=== PATIENT | female | born 1980 | race Caucasian/White ===

== ENCOUNTER → 2019-07-23 | Outpatient (CLI) | payer OTHER ==
[~2019-07-23] MED LIST: CATHETER FLUSH 10 ML SYR IV PRN; HOLD METFORMIN - RECEIVED CONTRAST 20 ML VIAL IV SCH; IOHEXOL 350 MG/ML 100 ML (OMNIPAQUE 350) VIAL IV ONE; NS 100 ML (IVPB) BAG IV ONE
[2019-07-23 14:50] LABS: BUN/CREATININE RATIO 20; CREATININE SERUM 0.71 MG/DL (0.60-1.30); GFR ESTIMATED > 60
--- NOTE | 2019-07-23 15:56 | Diagnostic Imaging Report ---
PROCEDURE: CT abdomen and pelvis without contrast. TECHNIQUE: Multiple contiguous axial images were obtained through the abdomen and pelvis without the use of intravenous contrast. Auto Exposure Controls were utilized during the CT exam to meet ALARA standards for radiation dose reduction. INDICATION: Generalized abdominal pain. COMPARISON: None available. FINDINGS: 0.4 cm subpleural left lower lobe pulmonary nodule. Otherwise, the visualized lung bases are clear. 5 mm indeterminate hypodensity within the right hepatic lobe. Otherwise, the unenhanced liver is unremarkable. The unenhanced spleen is unremarkable. The adrenal glands are unremarkable. The unenhanced pancreas is unremarkable. The right kidney and right ureter are grossly unremarkable. 0.6 cm nonobstructing calculus within the left renal pelvis. Additional punctate nonobstructing calculus within the inferior pole of the left kidney. No hydroureter. No aneurysmal dilatation of the abdominal aorta. The gallbladder is grossly unremarkable. The urinary bladder is unremarkable. Cylindrical gas lucency within the vagina is felt related to tampon. The uterus and adnexal structures are otherwise unremarkable for age. No bowel obstruction or pneumatosis. No significant adenopathy, free air, or free fluid within the abdomen or pelvis. No acute osseous abnormality. IMPRESSION: 0.6 cm nonobstructing calculus within the left renal pelvis. Additional punctate nonobstructing calculus within the inferior pole of the left kidney. Sub-6 mm left lower lobe pulmonary nodule. If patient is at high risk for lung cancer, then a nonemergent dedicated CT of the chest would be indicated. If the patient is not at high risk for lung cancer, no definitive follow-up of this pulmonary nodule would be indicated. Additional findings as above. Dictated by: Dictated on workstation # [id number]
== END ==
LOC: RAD 14:09
PROVIDERS: ATTEND Nurse Practitioner Family
DX: N20.0 Calculus of kidney (principal); R91.1 Solitary pulmonary nodule
CPT/HCPCS: 36415; 74176; 82565; 84520